=== PATIENT | female | born 1995 | race Caucasian/White ===

== ENCOUNTER 2020-12-04 20:57 | Emergency (ER) | payer BC ==
[~2020-12-04] VITALS: Ht 167.6 cm; Wt 61.2 kg
--- NOTE | 2020-12-04 21:13 | NUR ---
ED Nurse Note: Pt walked in from home, walks with a steady gait. Vitals are stable on RA. Per pt she was walking her dog with the leash in her left hand and the leash pulled her thumb backward. She has pain in her thumb and her hand. She has some movement in her thumb but it is limited. No numbness. Capilary refill under 3 seconds. Addendum: 12/04/20 at 2208 by ISA Correction: she fell walking her dog causing her left thumb outward and backward as she fell onto a rock
[2020-12-04 21:17] VITALS: BP 110/70
--- NOTE | 2020-12-04 21:20 | Emergency Room Report ---
History of Present Illness General Chief Complaint: Upper Extremity Injury Source: Patient Present Illness HPI Disclaimer: Please note that this report is being documented using [employer]. This can lead to erroneous entry secondary to incorrect interpretation by the dictating instrument. HPI: 25-year-old [id number] female presents for evaluation of left thumb injury. She was playing with her dog yesterday falling forward extending the left thumb outward and backward as she fell onto a rock. Reports inability to extend thumb and decreased strength. She has pain over the thenar eminence and in the anatomic snuffbox. Has full range of motion of the wrist. No other injury to the hand noted. All other digits have full range of motion strength and sensation. Denies skin breakdown or laceration. No prior history of injury. PMH: Reviewed PSH: Reviewed Allergies: Reviewed Social Hx: Reviewed Allergies: Coded Allergies: Cat Dander (Verified Allergy, Unknown, 12/04/20) COVID-19 Screening Contact w/high risk pt: No Experienced COVID-19 symptoms?: No COVID-19 Testing performed DRY CANS BACK TENDER: No Patient History Last Menstrual Period: 11/2020 Nursing Documentation-PMH Past Medical History: No Stated History Review of Systems All Other Systems: negative except mentioned in HPI Physical Exam Vital Signs Date Time Temp Pulse Resp B/P (MAP) Pulse Ox O2 Delivery O2 Flow Rate FiO2 12/04/20 21:06 98.4 74 16 106/68 (81) 97 Room Air General: Awake and alert, no acute distress HEENT: NC/AT. EOMI. Resp: Normal work of breathing Skin: Intact. No abrasions, laceration or rash over the exposed skin MSK: Normal tone and bulk. Moving all extremities. Moderate edema over the base of the left thumb. Unable to actively extend the thumb past neutral position. Able to flex though limited to pain. Tender to palpation over the thenar eminence and in the anatomic snuffbox. Full range of motion at the wrist on flexion extension. No obvious tenderness or deformity in the wrist. All of the digits have full range of motion. Brisk capillary refill in all digits. Neuro: Awake and alert. Mentating appropriately Medical Decision Making Diagnostic Impression: Primary Impression: Thumb injury ER Course 25-year-old female presenting for evaluation of left thumb injury. Cannot identify osseous injury on x-ray. Suspect ligamentous injury likely of the ulnar collateral ligament consistent with a skiers/gamekeeper's thumb type injury. This would make sense with the patient's injury of hyperextension. Placed in thumb spica and patient referred to orthopedic surgery. Stable for outpatient follow-up. Instructed to return new or worsening symptoms. She understands and agrees with this treatment plan. Other X-Ray Diagnostic Results Other X-Ray Diagnostic Results : X-Ray ordered: left thumb # of Views/Limited Vs Complete: 3 View Indication: Pain EP Interpretation: Yes Interpretation: no dislocation, no soft tissue swelling, no fractures Impression: No acute disease Electronically Signed by: Electronically signed by Dr. Ish Lawrence MD Last Vital Signs Date Time Temp Pulse Resp B/P (MAP) Pulse Ox O2 Delivery O2 Flow Rate FiO2 12/04/20 21:06 98.4 74 16 106/68 (81) 97 Room Air Disposition: HOME, SELF-CARE Condition: Stable Scripts Ibuprofen* (MOTRIN*) 600 Mg Tablet 600 MG ORAL Q6H PRN for For Pain, #30 TAB 0 Refills Prov: Ish Lawrence MD 12/04/20 Hydrocodone/Acetaminophen 5-325* (HYDROCODONE/ACETAMINOPHEN 5-325*) 1 Each Tablet 1 TAB ORAL Q6H PRN for For Pain, #12 TAB 0 Refills Prov: Ish Lawrence MD 12/04/20 Ish Lawrence MD Dec 04, 2020 21:20
[2020-12-04] MEDS ORDERED: IBUPROFEN600 M1 ORAL (21:59)
[2020-12-04] MEDS ORDERED: HYDROCODON-ACE1 EA15 ORAL (21:59)
--- NOTE | 2020-12-04 22:12 | Diagnostic Imaging Report ---
EXAM: XR Left Hand Complete, 3 or More Views CLINICAL HISTORY: INJ TECHNIQUE: Frontal, lateral and oblique views of the left hand. COMPARISON: No relevant prior studies available. FINDINGS: Bones/joints: Unremarkable. No acute fracture. No dislocation. Soft tissues: Unremarkable. No radiopaque foreign body. IMPRESSION: Normal left hand x-rays.
[2020-12-04 22:13] VITALS: BP 112/85
--- NOTE | 2020-12-04 22:14 | NUR ---
ER DISCHARGE NOTE: Patient is cleared to be discharged per ERMD, pt is aox4, on room air, with stable vital signs. Splint placed by our windows server support technician. pt was given dc and prescription instructions, pt was able to verbalize understanding, pt id band removed. pt is able to ambulate with steady gait. pt took all belongings.
== END 2020-12-04 22:15 | disposition home or self-care (01) ==
LOC: EMR 21:30
DX: S69.92XA Unspecified injury of left wrist, hand and finger(s), initial encounter (principal); W01.198A Fall on same level from slipping, tripping and stumbling with subsequent striking against other object, initial encounter; Y93.01 Activity, walking, marching and hiking; Y92.9 Unspecified place or not applicable; Z91.09 Other allergy status, other than to drugs and biological substances
CPT/HCPCS: 29125; 99283